=== PATIENT | male | born 2000 | race Two or more races ===

== ENCOUNTER 2024-03-04 11:27 | Emergency (ER) | payer MEDICAID ==
[~2024-03-04] VITALS: Ht 142.2 cm; Wt 127.0 kg
[2024-03-04 11:34] VITALS: BP 105/70; PULSE 109; RESP 18; O2SAT 97
[2024-03-04] MEDS: levETIRAcetam 1000 mg/100ml 100 ML IV ONE (12:50)
[2024-03-04] MEDS: ACETAMINOPHEN 325 MG TAB PO ONE (12:50)
== END 2024-03-04 12:50 | disposition home or self-care (01) ==
LOC: EDBD 11:27 → ER 11:27
DX: R56.9 Unspecified convulsions (principal)
CPT/HCPCS: 70450